=== PATIENT | female | born 1965 | race Caucasian/White ===

== ENCOUNTER 2025-01-29 14:44 | Emergency (ER) | payer OTHER, MEDICAID ==
[2025-01-29 15:20] LABS: #Basophils 0.1 thou/uL (0.0-0.2); #Eosinophils 0.5 thou/uL (0.0-0.7); #Lymphocytes 1.9 thou/uL (1.20-3.40); #Monocytes 0.8 thou/uL (0.11-0.59); #Neutrophils 8.6 thou/uL (1.40-6.50); %Basophils 0.9 % (0.0-1.0); %Eosinophils 4.1 % (0.0-10.0); %Lymphocytes 16.0 % (21.0-51.0); %Monocytes 6.9 % (0.0-10.0); %Neutrophils 72.1 % (42.0-75.0); Hematocrit 45.7 % (36.0-47.0); Hemoglobin 14.4 g/dL (12.0-16.0); Mean Corpuscular Hemoglobin 27.9 pg (27.0-31.0); Mean Corpuscular Volume 88.8 fl (78.0-98.0); Platelet Count 421 10x3/uL (130-400); Red Blood Cell (RBC) Count 5.14 mill/uL (4.20-5.40); White Blood Cell (WBC) Count 12.0 10x3/uL (4.8-10.8)
[2025-01-29 15:35] LABS: ALT (SGPT) 52 U/L (Less than 34); AST (SGOT) 52 U/L (11-34); Albumin 4.5 g/dL (3.1-4.5); Alkaline Phosphatase 96 U/L (40-110); Anion Gap 19 mmol/L (10-20); BUN (Urea Nitrogen) 14 mg/dL (9.8-20.1); Bilirubin, Total 0.6 mg/dL (0.3-1.2); Calc. Creatinine Clearance 0 mL/min (70-130); Calcium 9.1 mg/dL (7.8-10.44); Carbon Dioxide 17 mmol/L (22-29); Chloride 108 mmol/L (98-107); Globulin 3.9 g/dL (2.4-3.5); Glucose 119 mg/dL (70-105); Potassium 3.4 mmol/L (3.5-5.1); Sodium 141 mmol/L (136-145)
[2025-01-29 15:37] LABS: Bicarbonate (HCO3v) 20.6 mmol/L (22.0-28.0); CO2 Tension (PvCO2) 41.6 mmHg (42.0-51.0); Calcium, Ionized 1.15 mmol/L (1.15-1.33); Chloride 115 mmol/L (98-107); Hemoglobin - Calc 15.6 g/dL (12.0-16.0); Potassium 3.2 mmol/L (3.5-5.1); Sodium 140 mmol/L (138-145); T. Carbon Dioxide 21.9 mmol/L (22.0-28.0); vO2 Saturation-calc 98.8 % (60.0-85.0)
[2025-01-29 16:07] LABS: Lipase 101 U/L (8-78)
[2025-01-29 16:20] LABS: Glucose, Urine (Dipstick) Negative (Negative); Leukocyte Negative (Negative); Protein, Urine (Dipstick) Negative (Neg-Trace); Specific Gravity, Urine 1.015 (1.005-1.030)
[2025-01-29 16:23] LABS: Bacteria/HPF Rare-Few HPF (None Seen); CAUTI Indications for Culture Pelvic or flank pain; RBC/HPF None Seen HPF (0-3)
[2025-01-29 16:24] LABS: Mucous/LPF 1+ LPF (<2+); Urine Culture Reflex No No
== END 2025-01-29 17:27 | disposition home or self-care (01) ==
LOC: MADERS 14:44
DX: R19.7 Diarrhea, unspecified (principal); E78.5 Hyperlipidemia, unspecified; M79.7 Fibromyalgia; F17.210 Nicotine dependence, cigarettes, uncomplicated; Z86.73 Personal history of transient ischemic attack (TIA), and cerebral infarction without residual deficits
CPT/HCPCS: 80053; 81001; 82330; 82435; 82803; 83690; 84132; 84295; 85014; 85025; 96360; 96361; J7030